=== PATIENT | female | born 1965 | race Caucasian/White ===

== ENCOUNTER 2018-05-13 11:44 | Inpatient (IN) | payer MEDICAID ==
[2018-05-13 13:55] LABS: ADD MAN DIFF? NO
[2018-05-13 13:57] LABS: ABNORMAL IP MESSAGE 1; BASOPHILS % 0.6 % (0.0-2.0); EOSINOPHILS # 0.3 10^3/ul (0.0-0.5); EOSINOPHILS % 4.2 % (0.0-7.0); HEMATOCRIT 27.5 % (37.0-47.0); HEMOGLOBIN 7.6 g/dl (12.0-16.0); LYMPHOCYTES # 2.1 10^3/ul (0.8-2.9); LYMPHOCYTES % 30.8 % (15.0-51.0); MEAN CORPUSCULAR HGB CONC 27.6 g/dl (32.0-37.0); MEAN CORPUSCULAR VOLUME 57.9 fl (82.0-101.0); MONOCYTE # 0.8 10^3/ul (0.3-0.9); MONOCYTES % 11.9 % (0.0-11.0); NEUTROPHIL # 3.5 10^3/ul (1.6-7.5); NEUTROPHILS % 52.2 % (39.0-77.0); PLATELET COUNT 435 10^3/UL (140-415); RED BLOOD COUNT 4.75 10^6/ul (4.20-5.40); RED CELL DISTRIBUTION WIDTH 21.7 % (11.5-14.5)
[2018-05-13 13:57] LABS: WHITE BLOOD COUNT 6.7 10^3/ul (4.8-10.8)
[2018-05-13 14:01] LABS: POSITIVE DIFF @See below
[2018-05-13 14:13] LABS: ALANINE AMINOTRANSFERASE 33 IU/L (13-69); ALBUMIN 4.5 g/dl (3.3-4.9); ALBUMIN/GLOBULIN RATIO 1.04; ALKALINE PHOSPHATASE 122 IU/L (42-121); ANION GAP 9 (5-13); ASPARTATE AMINO TRANSFERASE 64 IU/L (15-46); BILIRUBIN,INDIRECT 0.1 mg/dl (0-1.1); BILIRUBIN,TOTAL 0.1 mg/dl (0.2-1.3); BLOOD UREA NITROGEN 13 mg/dl (7-20); CALCIUM 9.3 mg/dl (8.4-10.2); CARBON DIOXIDE 23 mmol/L (21-31); CHLORIDE 108 mmol/L (97-110); CREATININE 0.44 mg/dl (0.44-1.00); Estimated GFR > 60 mL/min (>60); GLUCOSE 97 mg/dl (70-220); LIPASE 101 U/L (23-300); POTASSIUM 4.6 mmol/L (3.5-5.1); SODIUM 140 mmol/L (135-144); TOTAL PROTEIN 8.8 g/dl (6.1-8.1)
[2018-05-13 14:18] LABS: INR 0.92; PROTIME 12.5 Sec (11.9-14.9)
[2018-05-13 14:19] LABS: PARTIAL THROMBOPLASTIN TIME 24.7 Sec (23.0-35.0)
[2018-05-13 14:25] LABS: TROPONIN-I < 0.012 ng/ml (0.000-0.120)
[2018-05-13 16:18] LABS: RETICULOCYTE COUNT # 0.077 X10^6 (0.020-0.110); RETICULOCYTE COUNT % 1.6 % (0.5-1.5)
[2018-05-13 16:18] LABS: RETICULOCYTE RBC 4.73
[2018-05-13] MEDS ORDERED: NACL 0.9% 3 ML SYG IV (16:30)
[2018-05-13] MEDS ORDERED: ACETAMINOPHEN 325 MG TAB PO (16:30)
[2018-05-13] MEDS ORDERED: ONDANSETRON 4 MG INJ IV (16:30)
[2018-05-13] MEDS ORDERED: morphine 2 MG INJ IV (16:30)
[2018-05-13 16:56] LABS: IMMEDIATE SPIN CROSSMATCH 1 2
[2018-05-13 17:01] LABS: FERRITIN 5.2 ng/ml (11.1-264.0)
[2018-05-13] MEDS: SOD CHLORIDE 0.9% 250 ML IV* (17:20)
[2018-05-13] MEDS: ASPIRIN 325 MG TAB PO (18:51)
[2018-05-13] MEDS: SOD CHLORIDE 0.9% 1,000 ML IV (21:20)
[2018-05-13] MEDS: ATORVASTATIN 80 MG TAB PO (21:20)
[2018-05-13 22:36] LABS: IRON 30 ug/dl (35-150)
[2018-05-13 22:45] LABS: % IRON SATURATION 6 % SAT (22-52); TOTAL IRON BINDING CAPACITY 470 ug/dl (241-421)
[2018-05-13 22:50] LABS: TROPONIN-I < 0.012 ng/ml (0.000-0.120)
[2018-05-14 05:32] LABS: ADD MAN DIFF? NO
[2018-05-14 05:35] LABS: WHITE BLOOD COUNT 6.5 10^3/ul (4.8-10.8)
[2018-05-14 05:35] LABS: ABNORMAL IP MESSAGE 1; BASOPHIL # 0.1 10^3/ul (0.0-0.1); BASOPHILS % 0.8 % (0.0-2.0); EOSINOPHILS # 0.3 10^3/ul (0.0-0.5); EOSINOPHILS % 4.4 % (0.0-7.0); HEMATOCRIT 27.8 % (37.0-47.0); LYMPHOCYTES # 2.2 10^3/ul (0.8-2.9); LYMPHOCYTES % 33.1 % (15.0-51.0); MEAN CORPUSCULAR HEMOGLOBIN 17.5 pg (29.0-33.0); MEAN CORPUSCULAR HGB CONC 28.8 g/dl (32.0-37.0); MEAN PLATELET VOLUME 10.4 fl (7.4-10.4); MONOCYTE # 0.6 10^3/ul (0.3-0.9); MONOCYTES % 9.8 % (0.0-11.0); NEUTROPHIL # 3.4 10^3/ul (1.6-7.5); NEUTROPHILS % 51.6 % (39.0-77.0); PLATELET COUNT 386 10^3/UL (140-415); RED BLOOD COUNT 4.56 10^6/ul (4.20-5.40); RED CELL DISTRIBUTION WIDTH 25.2 % (11.5-14.5)
[2018-05-14 05:46] LABS: HEMOGLOBIN A1C 5.8 % (0-5.9)
[2018-05-14 05:51] LABS: POSITIVE DIFF @See below
[2018-05-14] MEDS: PANTOPRAZOLE (EC) 40 MG TAB PO (05:52)
[2018-05-14 06:13] LABS: ALANINE AMINOTRANSFERASE 36 IU/L (13-69); ALBUMIN 3.9 g/dl (3.3-4.9); ALBUMIN/GLOBULIN RATIO 1.05; ALKALINE PHOSPHATASE 112 IU/L (42-121); ANION GAP 8 (5-13); ASPARTATE AMINO TRANSFERASE 37 IU/L (15-46); BILIRUBIN,INDIRECT 0.4 mg/dl (0-1.1); BILIRUBIN,TOTAL 0.4 mg/dl (0.2-1.3); BLOOD UREA NITROGEN 10 mg/dl (7-20); CALCIUM 9.2 mg/dl (8.4-10.2); CARBON DIOXIDE 26 mmol/L (21-31); CHLORIDE 108 mmol/L (97-110); CHOL/HDL RATIO 4.5 RATIO; CHOLESTEROL 136 mg/dl (100-200); CREATININE 0.52 mg/dl (0.44-1.00); Estimated GFR > 60 mL/min (>60); GLUCOSE 101 mg/dl (70-220); HDL CHOLESTEROL 30 mg/dl (37-92); LDL CHOLESTEROL,CALCULATED 87 mg/dl; MAGNESIUM 2.1 mg/dl (1.7-2.5); POTASSIUM 3.7 mmol/L (3.5-5.1); SODIUM 142 mmol/L (135-144); TOTAL PROTEIN 7.6 g/dl (6.1-8.1); TRIGLYCERIDES 94 mg/dl (0-149)
[2018-05-14 07:26] LABS: TROPONIN-I < 0.012 ng/ml (0.000-0.120)
[2018-05-14] MEDS: ASPIRIN 81 MG TAB PO (08:23)
[2018-05-14] MEDS: SOD CHLORIDE 0.9% 250 ML IV* (11:40)
[2018-05-14 13:15] LABS: CARCINOEMBRYONIC ANTIGEN 0.4 ng/ml (0.0-5.0)
[2018-05-14] MEDS: SOD FERRIC GLUC COMPLX 125 MG in SOD CHLORIDE 0.9% 100 ML IVPB (13:37)
[2018-05-15] MEDS: HYDROCODONE/APAP (5/325) TAB PO (03:05)
[2018-05-15 05:33] LABS: ADD MAN DIFF? NO
[2018-05-15 05:43] LABS: ABNORMAL IP MESSAGE 1; BASOPHIL # 0.1 10^3/ul (0.0-0.1); BASOPHILS % 1.1 % (0.0-2.0); EOSINOPHILS # 0.4 10^3/ul (0.0-0.5); EOSINOPHILS % 4.3 % (0.0-7.0); HEMATOCRIT 32.6 % (37.0-47.0); HEMOGLOBIN 9.5 g/dl (12.0-16.0); LYMPHOCYTES # 2.1 10^3/ul (0.8-2.9); LYMPHOCYTES % 24.5 % (15.0-51.0); MEAN CORPUSCULAR HEMOGLOBIN 18.7 pg (29.0-33.0); MEAN CORPUSCULAR HGB CONC 29.1 g/dl (32.0-37.0); MONOCYTE # 0.8 10^3/ul (0.3-0.9); MONOCYTES % 9.6 % (0.0-11.0); NEUTROPHIL # 5.2 10^3/ul (1.6-7.5); NEUTROPHILS % 60.3 % (39.0-77.0); PLATELET COUNT 389 10^3/UL (140-415); RED BLOOD COUNT 5.09 10^6/ul (4.20-5.40); RED CELL DISTRIBUTION WIDTH 28.4 % (11.5-14.5)
[2018-05-15 05:43] LABS: WHITE BLOOD COUNT 8.6 10^3/ul (4.8-10.8)
[2018-05-15 05:49] LABS: POSITIVE DIFF @See below
[2018-05-15 06:10] LABS: ANION GAP 8 (5-13); BLOOD UREA NITROGEN 10 mg/dl (7-20); CALCIUM 9.5 mg/dl (8.4-10.2); CARBON DIOXIDE 25 mmol/L (21-31); CHLORIDE 107 mmol/L (97-110); CREATININE 0.57 mg/dl (0.44-1.00); Estimated GFR > 60 mL/min (>60); GLUCOSE 105 mg/dl (70-220); POTASSIUM 4.1 mmol/L (3.5-5.1); SODIUM 140 mmol/L (135-144)
[2018-05-15] MEDS: PANTOPRAZOLE (EC) 40 MG TAB PO (06:30)
[2018-05-15] MEDS ORDERED: SOD FERRIC GLUC COMPLX 125 MG in SOD CHLORIDE 0.9% 100 ML IVPB (10:00)
== END 2018-05-15 11:37 | disposition home or self-care (01) | DRG 812 ==
LOC: E/R 11:44 → 6WM 18:18
PROVIDERS: Pediatrics Neonatal-Perinatal Medicine
PROC: 30233N1 Transfusion of Nonautologous Red Blood Cells into Peripheral Vein, Percutaneous Approach (ICD-10-PCS; principal; 2018-05-13)
DX: D50.9 Iron deficiency anemia, unspecified (principal); R07.89 Other chest pain; E66.9 Obesity, unspecified; Z68.32 Body mass index [BMI] 32.0-32.9, adult
CPT/HCPCS: 36430; 71045; 80048; 80053; 80061; 82378; 82728; 83036; 83540; 83690; 83735; 84443; 84484; 85025; 85045; 85610; 85730; 86850; 86900; 86901; 86920; 93005; 93306; 99285-25

== ENCOUNTER 2018-05-21 23:14 | Emergency (ER) | payer MEDICAID ==
[2018-05-22] MEDS: ONDANSETRON 4 MG INJ IV (01:34)
[2018-05-22] MEDS: morphine 4 MG/ML VIAL IV (01:34)
[2018-05-22] MEDS: MECLIZINE 12.5 MG TAB PO (01:35)
[2018-05-22 01:37] LABS: ADD MAN DIFF? NO
[2018-05-22 01:41] LABS: WHITE BLOOD COUNT 10.7 10^3/ul (4.8-10.8)
[2018-05-22 01:41] LABS: ABNORMAL IP MESSAGE 1; BASOPHIL # 0.1 10^3/ul (0.0-0.1); BASOPHILS % 0.5 % (0.0-2.0); EOSINOPHILS # 0.1 10^3/ul (0.0-0.5); EOSINOPHILS % 0.7 % (0.0-7.0); HEMATOCRIT 36.3 % (37.0-47.0); HEMOGLOBIN 10.6 g/dl (12.0-16.0); LYMPHOCYTES # 1.4 10^3/ul (0.8-2.9); LYMPHOCYTES % 13.4 % (15.0-51.0); MEAN CORPUSCULAR HEMOGLOBIN 19.3 pg (29.0-33.0); MEAN CORPUSCULAR HGB CONC 29.2 g/dl (32.0-37.0); MEAN CORPUSCULAR VOLUME 66.2 fl (82.0-101.0); MONOCYTE # 0.4 10^3/ul (0.3-0.9); MONOCYTES % 4.1 % (0.0-11.0); NEUTROPHIL # 8.7 10^3/ul (1.6-7.5); NEUTROPHILS % 80.9 % (39.0-77.0); PLATELET COUNT 421 10^3/UL (140-415); RED BLOOD COUNT 5.48 10^6/ul (4.20-5.40); RED CELL DISTRIBUTION WIDTH 32.1 % (11.5-14.5)
[2018-05-22 01:44] LABS: POSITIVE DIFF @See below
[2018-05-22 01:58] LABS: ALANINE AMINOTRANSFERASE 29 IU/L (13-69); ALBUMIN 4.4 g/dl (3.3-4.9); ALKALINE PHOSPHATASE 141 IU/L (42-121); ANION GAP 12 (5-13); ASPARTATE AMINO TRANSFERASE 35 IU/L (15-46); BILIRUBIN,INDIRECT 0.1 mg/dl (0-1.1); BILIRUBIN,TOTAL 0.1 mg/dl (0.2-1.3); BLOOD UREA NITROGEN 12 mg/dl (7-20); CALCIUM 9.8 mg/dl (8.4-10.2); CARBON DIOXIDE 24 mmol/L (21-31); CHLORIDE 107 mmol/L (97-110); CREATININE 0.51 mg/dl (0.44-1.00); Estimated GFR > 60 mL/min (>60); GLUCOSE 140 mg/dl (70-220); SODIUM 143 mmol/L (135-144); TOTAL PROTEIN 8.4 g/dl (6.1-8.1)
[2018-05-22 02:10] LABS: TROPONIN-I < 0.012 ng/ml (0.000-0.120)
== END 2018-05-22 02:42 | disposition home or self-care (01) ==
LOC: E/R 23:14
DX: R07.9 Chest pain, unspecified (principal)
CPT/HCPCS: 36415; 70450; 71045; 80053; 84484; 85025; 86850; 86900; 86901; 93005; 96374; 96375; 99285-25

== ENCOUNTER 2018-05-29 03:04 | Emergency (ER) | payer MEDICAID ==
[2018-05-29] MEDS: METOCLOPRAMIDE 10 MG INJ IV (04:10)
[2018-05-29] MEDS: DIPHENHYDRAMINE 50 MG INJ IV (04:10)
[2018-05-29] MEDS: SOD CHLORIDE 0.9% 1,000 ML IV (04:19)
[2018-05-29] MEDS: morphine 4 MG/ML VIAL IV (04:38)
== END 2018-05-29 06:04 | disposition home or self-care (01) ==
LOC: FTE 03:04
DX: G43.909 Migraine, unspecified, not intractable, without status migrainosus (principal); M54.2 Cervicalgia
CPT/HCPCS: 93005; 96361; 96374; 96375; 99284-25

== ENCOUNTER 2019-01-02 21:04 | Emergency (ER) | payer MEDICAID ==
[2019-01-02] MEDS: IBUPROFEN 800 MG TAB PO (22:41)
== END 2019-01-02 23:58 | disposition home or self-care (01) ==
LOC: FTE 21:04
DX: M79.641 Pain in right hand (principal)
CPT/HCPCS: 73110; 73110-RT; 73130-RT; 81025; 99283-25